=== PATIENT | male | born 1965 | race Asian ===

== ENCOUNTER 2016-07-25 05:36 | Day surgery (SDC) | payer OTHER ==
[~2016-07-25] VITALS: Ht 167.6 cm; Wt 71.1 kg
[2016-07-25] VITALS (7 sets, daily range): BP systolic 106–131; BP diastolic 66–78; PULSE 57–85; RESP 15–18; O2SAT 94–99
[~2016-07-25 05:36] MED LIST: DICL100G8 TOPICAL
[2016-07-25] MEDS ORDERED: Ketamine 10 mg/mL 20 mL Inj ONE (05:37)
[2016-07-25] MEDS ORDERED: fentaNYL-PF 50 mCg/mL 2 mL Inj ONE (05:37)
[2016-07-25] MEDS: Lactated Ringer's 1,000 ML IV SCH ×4 (05:41→08:58)
[2016-07-25] MEDS ORDERED: MULT-1018 PO (05:53)
[2016-07-25] MEDS ORDERED: CeFAZolin Inj 2 GM in IV Premix 1 EACH IV ONE (06:00)
--- NOTE | 2016-07-25 07:18 | PCM.HPANE ---
Patient Data Surgeon Admitting Provider: Attending Provider:Tanner Byrd MD Primary Care Physician:Nicole Crowley MD Other Provider:[facility] Reason for Visit Left Inguinal Hernia Ht/WT & BMI Height (Feet): 5 Height (Inches): 6.00 Weight (Kilograms): 71.1 Body Mass Index 25.00 Allergies Coded Allergies: No Known Allergies (Verified , 12/08/15) Past Anesthesia History Anesthesia History: Denies:: Abnormal Airway, Anesthesia Reactions, Difficult Intubation Diabetes History Hx Diabetes?: No Medications Hypertension Medication: No Home Meds Incl Beta Ashli: No Reported Medications Multivitamin (Multi Vitamin Daily)1 Each Tablet1 Each PO DAILY 30 Days Ref 0 07/25/16 Diclofenac Gel (Voltaren Gel)100 Gm Tube1 Applic TOPICAL PRN For Pain #1 TUBE 07/24/16 Discontinued Scripts Ibuprofen 600 Mg Tffcen700 Mg PO QID PRN For Pain #30 TABLET Prov:Billy Fernandes MD 12/08/15 History HEENT History: Positive for:: Cataracts Denies:: Abnormal Airway Difficult Intubation Dysphagia Hearing Problem Hx of Heart Problems?: No Cardiovascular History: Denies:: Congestive Heart Failure Hypertension Hx of Respiratory Problem?: No Respiratory History: Denies:: Oxygen Administration Tuberculosis Use of C-PAP Machine Hx Neurologic Problems?: No Hx of GI Problems?: Yes Other GI Pertinent History: left inguinal hernia current admission problem Hx of Problems?: No Hx Musculoskeletal Problems?: No Hx Surgeries?: Yes (appe, cataract) Hx Any Other Health Problems?: Yes Other History: Denies:: Cancer Thyroid Disease Hx Diabetes: No Hx Alcohol Use: NoHx Substance Use: No Smoking Status: Never Smoker Have You Smoked inLast 12 mo: No Stop/Bang Treated for Sleep Apnea?: No Do You Have a CPAP Machine?: No S-Snoring: Do You Snore Loudly: No T-Tired: feel tired, fatigued: No O-Obsered: Observed not breath: No P-Blood Pressure: treated: No B- Body Mass Index > 35 kg/m2: No A- Age over 50: Yes N- Neck Large Circumference: No G- Gender Male: Yes HEENA Total Score: 2 HEENA Risk Assessment: Low Risk, <3 Yes Risk Assessment Category Category 1A: Patient has history of documented sleep apnea, and HAS NOT received any narcotic, sedative or anesthesia administration during this stay. Category 1B: Patient has history of documented sleep apnea, and HAS received any narcotic , sedative or anesthesia administration during this stay Category 2: Patient has SUSPECTED Obstructive Sleep Apnea, and HAS received any narcotic , sedative or anesthesia administration during this stay. Category 3: Patient has SUSPECTED Obstructive Sleep Apnea and HAS NOT received narcotic, sedative or anesthesia administration during this stay. Category 4: Outpatient in Procedural Areas with known sleep apnea or who screen positive for High Risk via the STOP/BANG questionnaire. Exam Exam Vital Signs Vital Signs Date Time Temp Pulse Resp B/P Pulse Ox O2 Delivery O2 Flow Rate FiO2 07/25/16 06:11 36.1 57 18 108/74 98 Room Air General Appearance: Alert HEENT/AIRWAY: MP 2 Lungs: Clear to Auscultation Heart: Exam Unremarkable Meds/Labs/Diagnostics Admission Meds Current Medications Lactated Ringer's (Lr) 1,000 ml @ 120 mls/hr Q8H20M IV Last administered on t 05:41; Start 07/25/16 at 05:00; Stop 07/25/16 at 13:19 Plan Impression Patient chart reviewed, patient interviewed and anesthestic plan with risks, benefits, and alternatives discussed, and informed consent obtained. NPO Status: 6pm ASA Physical Status: ASA1 Normal Healthy Anesthetic Plan: GA Bene/Risks/Altern/Consents: Yes HP Complete Prior to Induction: Yes Alvarez Mason MD Jul 25, 2016 07:18
[2016-07-25] MEDS ORDERED: Bupivacaine 0.5%/EPI 50 mL Inj INFILTRATE ONE (07:22)
[2016-07-25] MEDS ORDERED: Lactated Ringer's 1,000 ML IV SCH (08:31)
[2016-07-25] MEDS ORDERED: Lactated Ringer's 500 ML IV PRN (08:31)
[2016-07-25] MEDS ORDERED: fentaNYL-PF 50 mCg/mL 2 mL Inj IVPUSH PRN (08:35)
[2016-07-25] MEDS ORDERED: EPHEDrine Sulfate 50 mg/mL Inj IVPUSH PRN (08:35)
[2016-07-25] MEDS ORDERED: MetoCLOpramide 5 mg/mL 2 mL Inj IVPUSH PRN (08:35)
[2016-07-25] MEDS ORDERED: Ondansetron 2 mg/mL 2 mL Inj IVPUSH PRN (08:35)
[2016-07-25] MEDS ORDERED: Dexamethasone 4 mg/mL Inj IVPUSH PRN (08:35)
[2016-07-25] MEDS ORDERED: Phenylephrine 10,000 mCg/mL Inj IVPUSH PRN (08:35)
[2016-07-25] MEDS ORDERED: HYDROcodone-APAP 5-325 mg Tablet PO PRN (08:50)
--- NOTE | 2016-07-25 08:51 | PCM.DISURG ---
Surgical Discharge Instruction Date of Service Jul 25, 2016 Dates of Hospitalization Date of Hospital Admission Providers Admitting Physician: Primary Care Physician: Nicole Crowley MD Attending Physician: Tanner Byrd MD Discharge Diagnosis Discharge Diagnosis Indirect left inguinal hernia Diet Discharge Diet: No restrictions Activity Discharge Activity-General: Activity as pain allows, No lifting >15 pounds for 2 weeks Dressing and Incisional Care Dressing Care: Allow Steri Stripes to fall off, Remove outer dressing after 24 hrs Hygiene: May shower after (24 hours) Additional Instructions Discharge Instructions Return to light duty at work when able, with restrictions of no lifting greater than 15 pounds for 2 weeks, no prolonged periods of bending, twisting. Anticipate return to the full work without restrictions in 4-6 weeks. Follow Up Plan Follow Up Plan In the general surgery [place] postoperative clinic in 2-3 weeks. Call your provider for: Fever (over 101.5), Vomiting, Discharge @ incision, pus discharge Tanner Byrd MD Jul 25, 2016 08:51
--- NOTE | 2016-07-25 08:54 | PCM.SURGOP ---
Surgical Operative Report Date of Service: Jul 25, 2016 Pre Operative Diagnosis Left inguinal hernia Post Operative Diagnosis Indirect left inguinal hernia Procedure: Left inguinal hernia repair with mesh Surgeon and Emergency Department Director: Surgeon: Tanner Byrd MD Assistants: Indira Guerra PGY-1 Indication for Procedure 50-year-old man who presented with a 2 month history of increasing left groin swelling and discomfort. On exam, he had a reducible inguinal hernia. He had an ultrasound which demonstrated a fat-containing left inguinal hernia, with a loop of bowel with Valsalva maneuvers. After discussion of risks and benefits, he agreed to proceed with left inguinal hernia repair with mesh. Findings: There was an indirect hernia defect, as well as a moderate sized cord lipoma, which was excised. Procedure Details After smooth induction of general anesthesia with an LMA, the patient was placed in the supine position, and was prepped and draped in wide sterile fashion. A procedural pause was performed according to the SCOAP checklist, and all were found to be in agreement. A transverse incision was made in the skin lines in the left groin. Dissection was carried out with electrocautery through the subcutaneous tissue. The superficial inferior epigastric vein was cauterized and divided. Bel's fascia was divided. The external oblique fascia was skeletonized down to the external inguinal ring. The external oblique fascia was opened sharply, taking care to avoid injury to the ilioinguinal nerve. The spermatic cord contents were encircled with a Jarales drain. The inguinal floor was inspected. There was no direct defect. The spermatic cord was explored. There was a moderate sized cord lipoma which was dissected free and discarded. There was a hernia sac anteromedially, which was dissected off the cord structures. It was reduced through the deep inguinal ring. A repair was then performed using the Bard 3 x 6" polypropylene mesh, which was cut to size. It was secured to the pubic tubercle, the shelving edge of the ilioinguinal ligament, the conjoined tendon. A slit was cut in the mesh to allow passage of the spermatic cord. The external oblique fascia was then closed over the mesh using a running 3-0 Vicryl suture. Bel's fascia was closed with an interrupted 3-0 Vicryl suture. The skin incision was closed with a running 4-0 Monocryl subcuticular stitch. Steri-Strips and sterile dressings were applied. At the end the case all needle and sponge counts were correct 2. The patient was awakened from anesthesia without difficulty, and taken to the recovery room in satisfactory condition, having tolerated the procedure well. Complications There were no periprocedural complications identified. Surgical Specimen Removed: No Specimen sent to Pathology: Not applicable Anesthetic Plan: GA Grafts, Implants: Implants-See Implant Record Output, Estimated Blood Loss: 20 Blood Administration during cruz: No Drains: None Catheters: None copies to: Emily Joseph; Nicole Crowley MD, Joshua D MD Jul 25, 2016 08:54
[2016-07-25] MEDS: HYDROmorphone 1 mg/mL Inj IVPUSH PRN ×2 (09:07→09:18)
--- NOTE | 2016-07-25 09:32 | PCM.ANEP2 ---
Post Anesthesia Evaluation ASA/CMS Post Anesthesia VS in Patient's Normal Range?: Yes Resp Stable; Airway Patent?: Yes CV Function & Hydration Stable: Yes Mental Status Recovered?: Yes Pain control Satisfactory?: Yes N/V Control Satisfactory?: Yes Alvarez Mason MD Jul 25, 2016 09:32
--- NOTE | 2016-07-25 09:32 | PCM.ANEP1 ---
Post Anesthesia Phase 1 PACU Phase 1 Assessment Date of Service: Jul 25, 2016 Vital Signs Vital Signs Date Time Temp Pulse Resp B/P Pulse Ox O2 Delivery O2 Flow Rate FiO2 07/25/16 09:10 36.4 83 15 123/78 99 Nasal Cannula 3 07/25/16 09:00 85 16 126/74 99 Nasal Cannula 3 07/25/16 08:50 36.6 131/74 07/25/16 06:11 36.1 57 18 108/74 98 Room Air Anesthetic Administered: GA Level of Alertness: Awake, talking MONTOYA's with Equal Strength: Yes Pain: No Nausea or Vomiting: No Oxygen Delivery: Nasal Cannula Lungs: Clear to Auscultation Dermatome Level: Full Sensation Alvarez Mason MD Jul 25, 2016 09:32
== END 2016-07-25 23:59 | disposition home or self-care (01) ==
LOC: SAS 05:36
PROVIDERS: ATTEND Student in an Organized Health Care Education/Training Program
DX: K40.90 Unilateral inguinal hernia, without obstruction or gangrene, not specified as recurrent (principal); Z79.899 Other long term (current) drug therapy
CPT/HCPCS: 49505; C1781; J0690; J1170; J1885; J2250; J3010; J7120